=== PATIENT | male | born 1995 | race Caucasian/White ===

== ENCOUNTER → 2016-11-08 | Outpatient (CLI) | payer OTHER ==
--- NOTE | 2016-11-09 08:51 | XR ---
EXAMINATION TYPE: XR shoulder complete LT DATE OF EXAM: 11/08/2016 4:24 PM COMPARISON: NONE HISTORY: Pain TECHNIQUE: Three views are submitted. FINDINGS: The osseous structures are intact. There is no acute fracture or dislocation. The AC joint is maint ained. IMPRESSION: 1. No acute process.
== END | disposition home or self-care (01) ==
LOC: RADXRYALE 16:13
PROVIDERS: ATTEND Physician Assistant Medical
DX: M25.512 Pain in left shoulder (principal)

== ENCOUNTER 2017-05-30 19:17 | Emergency (ER) | payer OTHER ==
[2017-05-30 19:23] VITALS: TEMP 97.7
[2017-05-30] MEDS ORDERED: SODIUM CHLORIDE 0.9% 1,000 ML IV STA (19:36)
--- NOTE | 2017-05-30 19:49 | ED ---
General Adult HPI - General Chief complaint: Dizziness Stated complaint: Dizzy/Nausea Time Seen by Provider: 05/30/17 19:25 Source: patient Mode of arrival: ambulatory Limitations: no limitations - History of Present Illness Initial comments: This is a 22-year-old male who presents to the Emergency Department today with complaint of dizziness and nausea. He felt this way for one week, felt better for a few days and it has come back for the past week. He states that he feels nauseous after every meal. He has vomited several times after some meals, the last time being a couple days ago. He states that he becomes dizzy when he is walking and standing for long periods of time. He denies loss of consciousness. He describes the dizziness as lightheadedness, "when you get up too fast." Patient reports that dizziness is made better by closing his eyes and sitting down. He denies new medications and illicit drug use. Denies fever , chills, chest pain, shortness of breath, abdominal pain, diarrhea, dysuria, hematuria, numbess, tingling, headache, vision or hearing changes. - Related Data Home Medications Medication Instructions Recorded Confirmed Fexofenadine HCl [Sobia Allergy] 180 mg PO DAILY PRN 05/30/17 05/30/17 Allergies Allergy/AdvReac Type Severity Reaction Status Date / Time bee venom protein (honey bee) Allergy Anaphylaxis Verified 05/30/17 19:58 Review of Systems ROS Statement: Those systems with pertinent positive or pertinent negative responses have been documented in the HPI. ROS Other: All systems not noted in ROS Statement are negative. Past Medical History Additional Past Medical History / Comment(s): mario cx 2000 History of Any Multi-Drug Resistant Organisms: None Reported Past Surgical History: No Surgical Hx Reported Additional Past Surgical History / Comment(s): sugery due to cx. Past Psychological History: No Psychological Hx Reported Smoking Status: Never smoker Past Alcohol Use History: Occasional Past Drug Use History: None Reported General Exam - General Exam Comments Initial Comments: General: Awake and alert, well-developed; in no apparent distress. HEENT: Head atraumatic, normocephalic. Pupils are equal, round and reactive to light. Extraocular movements intact. Oropharynx moist without erythema or exudate. Neck: Supple. Normal ROM. No JVD. Trachea midline. No adenopathy. Cardiovascular: Regular rate and rhythm. No murmurs, rubs or gallops. Chest symmetrical. Respiratory: Lungs clear to auscultation bilaterally. No wheezes, rales or rhonchi. Normal respiratory efffort with no use of accessory muscles. Abdomen: Soft, non-tender, non-distended. No rigidity, rebound or guarding. Normal bowel sounds in all 4 quadrants. Musculoskeletal: Normal ROM, no tenderness, no pedal edema. Skin: [place], warm and dry without rashes or lesions. Neurological: Alert and oriented x3. CN II-XII grossly intact. Speech is fluent and answers are appropriate. No focal neuro deficits. Psychiatric: Normal mood and affect. No overt signs of depression or anxiety noted. Limitations: no limitations Course Vital Signs 05/30/17 19:18 Temperature 97.7 F Pulse Rate 66 Respiratory 20 Rate Blood Pressure 109/73 O2 Sat by Pulse 100 Oximetry EKG Findings - EKG Comments: EKG Findings:: EKG performed at 19:53. Normal sinus rhythm with early repolarization. ventricular rate 61 bpm. TX interval 140 QRS duration 82 QT/ QTC 372/374 Medical Decision Making - Medical Decision Making Patient is doing well and is in no apparent distress. CBC and CMP were unremarkable. EKG was normal. Orthostatic blood pressures were normal. He'll be discharged home with recommendations to stay hydrated and take over-the- counter Zantac as needed for nausea. Disposition Clinical Impression: Dizziness, nonspecific Disposition: HOME SELF-CARE Condition: Good Instructions: Dizziness (ED) Additional Instructions: Please follow up with PCP within 2-3 days. Return to ED if symptoms should worsen. May take Zantac [id number] for nausea as needed. Referrals: Vivek Pappas DO [Primary Care Provider] - 1-2 days Time of Disposition: 20:44
[2017-05-30 19:56] LABS: Basophils % (A) 1 %; CH 30.8; CHCM 35.2; Eosinophils # (A) 0.2 k/uL (0-0.7); Eosinophils % (A) 4 %; HCT 47.1 % (39.0-53.0); HDW 2.47; HGB 15.9 gm/dL (13.0-17.5); Luc # (Auto) 0.19; Luc % (Auto) 3; Lymphocytes # (A) 2.1 k/uL (1.0-4.8); Lymphocytes % (A) 34 %; MCH 29.7 pg (25.0-35.0); MCHC 33.8 g/dL (31.0-37.0); MCV 87.8 fL (80.0-100.0); Mean Platelet Volume 6.5; Monocytes # (A) 0.4 k/uL (0-1.0); Monocytes % (A) 6 %; Neutrophils # (A) 3.2 k/uL (1.3-7.7); Neutrophils % (A) 52 %; RBC 5.36 m/uL (4.30-5.90); RDW 13.5 % (11.5-15.5); WBC 6.1 k/uL (3.8-10.6); WBC (Perox) 5.63
[2017-05-30 20:12] LABS: ALT 33 U/L (21-72); AST 19 U/L (17-59); Alkaline Phosphatase 50 U/L (38-126); Anion Gap 9 mmol/L; Blood Urea Nitrogen 9 mg/dL (9-20); Calcium 9.6 mg/dL (8.4-10.2); Carbon Dioxide 26 mmol/L (22-30); Chloride 104 mmol/L (98-107); Glucose 83 mg/dL (74-99); Non-African American GFR(MDRD) >60 (>60 ml/min/1.73 sqM); Potassium 4.4 mmol/L (3.5-5.1); Sodium 139 mmol/L (137-145); Total Bilirubin 0.8 mg/dL (0.2-1.3); Total Protein 6.6 g/dL (6.3-8.2)
[2017-05-30 21:11] VITALS: BP 107/66; PULSE 57; RESP 18
== END 2017-05-30 21:20 | disposition home or self-care (01) ==
LOC: EC 19:17
DX: R42 Dizziness and giddiness (principal); R11.2 Nausea with vomiting, unspecified; Z91.030 Bee allergy status; Z85.71 Personal history of Hodgkin lymphoma; Z98.890 Other specified postprocedural states
CPT/HCPCS: 36415; 80053; 85025; 93005; 96360; 99284

== ENCOUNTER 2017-11-07 02:40 | Emergency (ER) | payer OTHER ==
[2017-11-07 02:47] VITALS: RESP 18
[2017-11-07] MEDS ORDERED: ALBUTEROL NEBULIZED 2.5 MG/3 ML INHALATION STA (02:58)
[2017-11-07] MEDS ORDERED: OXYMETAZOLINE 0.05% NASL SPRAY 1 SPRAY BOTTLE NASAL STA (02:58)
[2017-11-07] MEDS ORDERED: predniSONE 20 MG TAB PO STA (02:58)
[2017-11-07] MEDS ORDERED: diphenhydrAMINE 50 MG CAP PO STA (02:58)
--- NOTE | 2017-11-07 03:14 | ED ---
URI HPI - General Chief Complaint: Upper Respiratory Infection Stated Complaint: ALLERGIC RX Time Seen by Provider: 11/07/17 02:48 Source: patient, RN notes reviewed Mode of arrival: ambulatory Limitations: no limitations - History of Present Illness Initial Comments: 22-year-old male present emergency from her for ALLERGIES possible ALLERGIC reaction. Patient states that he after working in [employer] and he had a runny nose and congestion. Patient states initially just felt like his ALLERGIES but throughout the 3 hours a work he noticed a started having worsening congestion some ice sensitivity, itching a also developed a little bit shortness of breath and dizziness. Patient states that he normally takes Sobia and Zyrtec for his ALLERGIES he has not taken either one. He denies any new soaps lotions or detergents. He states that he was not in contact running new chemicals or any new areas at work that he knows about. Patient has a sore throat, ear pain. - Related Data Home Medications Medication Instructions Recorded Confirmed Fexofenadine HCl [Sobia Allergy] 180 mg PO DAILY PRN 05/30/17 11/07/17 Cetirizine HCl [Zyrtec] 10 mg PO DAILY 11/07/17 11/07/17 Allergies Allergy/AdvReac Type Severity Reaction Status Date / Time bee venom protein (honey bee) Allergy Anaphylaxis Verified 11/07/17 02:46 Review of Systems ROS Statement: Those systems with pertinent positive or pertinent negative responses have been documented in the HPI. ROS Other: All systems not noted in ROS Statement are negative. Past Medical History Past Medical History: Cancer Additional Past Medical History / Comment(s): hogkins cx 2000, seasonal allergies History of Any Multi-Drug Resistant Organisms: None Reported Past Surgical History: No Surgical Hx Reported Additional Past Surgical History / Comment(s): surgery due to cx. Past Psychological History: No Psychological Hx Reported Smoking Status: Never smoker Past Alcohol Use History: Occasional Past Drug Use History: None Reported General Exam Limitations: no limitations General appearance: alert, in no apparent distress Head exam: Present: atraumatic, normocephalic, normal inspection Eye exam: Present: normal appearance, PERRL, EOMI, conjunctival injection. Absent: scleral icterus, periorbital swelling ENT exam: Present: normal exam, normal oropharynx, mucous membranes moist, TM's normal bilaterally Neck exam: Present: normal inspection, full ROM. Absent: tenderness, meningismus, lymphadenopathy Respiratory exam: Present: normal lung sounds bilaterally. Absent: respiratory distress, wheezes, rales, rhonchi, stridor Cardiovascular Exam: Present: regular rate, normal rhythm, normal heart sounds. Absent: systolic murmur, diastolic murmur, rubs, gallop, clicks Neurological exam: Present: alert, oriented X3, CN II-XII intact Skin exam: Present: warm, dry, intact, normal color. Absent: rash Course Vital Signs 11/07/17 11/07/17 11/07/17 02:41 03:31 03:40 Temperature 98.0 F Pulse Rate 79 72 72 Respiratory 18 Rate Blood Pressure 134/75 O2 Sat by Pulse 95 Oximetry Medical Decision Making - Medical Decision Making 22-year-old male presented from for ALLERGIES ALLERGIC reaction. Patient was given Benadryl and prednisone albuterol and Afrin. Patient states he feels improved after medications. Patient was advised to continue his Sobia or Zyrtec at home along with Afrin for the next 2-3 days. Return parameters were discussed. Disposition Clinical Impression: Environmental allergies, Allergic reaction Disposition: HOME SELF-CARE Condition: Stable Instructions: General Allergic Reaction (ED) Additional Instructions: Please return to the Emergency Department if symptoms worsen or any other concerns. Referrals: Vivek Pappas DO [Primary Care Provider] - 1-2 days Time of Disposition: 03:48
[2017-11-07 04:05] VITALS: BP 119/68; PULSE 77; TEMP 97.4
== END 2017-11-07 04:05 | disposition home or self-care (01) ==
LOC: EC 02:40
DX: T78.49XA Other allergy, initial encounter (principal); Z85.71 Personal history of Hodgkin lymphoma; Z79.899 Other long term (current) drug therapy; Z91.030 Bee allergy status
CPT/HCPCS: 94640; 99283; J7512